=== PATIENT | male | born 1985 | race African-American/Black ===

== ENCOUNTER 2017-05-24 10:54 | Emergency (ER) | payer SELFPAY ==
[~2017-05-24] VITALS: Ht 160 cm; Wt 72.2 kg
[~2017-05-24 10:54] MED LIST: FLEXERIL10 MG; MOTRIN800 MG; NAPROSYN500 MG PO; NOHOMEMEDS; NORCO 5/3251 TABLET PO; OCUFLOX 0.100 DROP/5 LEFT EYE
[2017-05-24 12:48] VITALS: BP 140/50
== END 2017-05-24 12:49 | disposition home or self-care (01) ==
LOC: EME 10:54
DX: S63.601A Unspecified sprain of right thumb, initial encounter (principal); W17.81XA Fall down embankment (hill), initial encounter; Y93.01 Activity, walking, marching and hiking
CPT/HCPCS: 73130; 99281; 99283

== ENCOUNTER 2018-02-10 09:35 | Emergency (ER) | payer SELFPAY ==
[~2018-02-10] VITALS: Ht 160 cm; Wt 76.2 kg
[2018-02-10] MEDS ORDERED: KEFLEX500 MG PO (11:55)
[2018-02-10] MEDS ORDERED: NAPROSYN500 MG PO (11:55)
[2018-02-10 12:39] VITALS: BP 147/91
== END 2018-02-10 12:41 | disposition home or self-care (01) ==
LOC: EME 09:35
DX: S67.191A Crushing injury of left index finger, initial encounter (principal); S62.661A Nondisplaced fracture of distal phalanx of left index finger, initial encounter for closed fracture; S61.211A Laceration without foreign body of left index finger without damage to nail, initial encounter; W23.0XXA Caught, crushed, jammed, or pinched between moving objects, initial encounter; Z23 Encounter for immunization
CPT/HCPCS: 73140; 99281; 99283

== ENCOUNTER 2018-04-19 22:38 | Emergency (ER) | payer SELFPAY ==
[~2018-04-19] VITALS: Ht 160 cm; Wt 73.3 kg
[~2018-04-19 22:38] MED LIST changes: +KEFLEX500 MG PO
[2018-04-20] MEDS ORDERED: KEFLEX500 MG PO (00:29)
[2018-04-20 00:44] VITALS: BP 143/78
== END 2018-04-20 00:41 | disposition home or self-care (01) ==
LOC: EME 22:38
DX: L60.0 Ingrowing nail (principal)
CPT/HCPCS: 99281; 99283

== ENCOUNTER 2018-06-13 04:02 | Emergency (ER) | payer BC ==
[~2018-06-13] VITALS: Ht 157.5 cm; Wt 71.4 kg
[2018-06-13 04:42] LABS: HEMATOCRIT 42.9 % (38.0-50.0); HEMOGLOBIN 14.5 G/DL (12.5-16.6); MCH 28.2 PG (29.0-34.0); MCHC 33.8 G/DL (30.0-36.0); MCV 83.3 FL (86-99); PLATELET COUNT 217 K/uL (156-360); RBC DIS.WIDTH-CV 12.7 % (11.8-14.6); RBC DIS.WIDTH-SD 38.4 % (39-53); RED BLOOD COUNT 5.15 M/uL (4.00-5.50); WHITE BLOOD COUNT 6.8 K/uL (4.1-10.2)
[2018-06-13 04:52] LABS: CHLORIDE 106 mEq/L (99-109); POTASSIUM 4.2 mEq/L (3.7-5.4); SODIUM 142 mEq/L (136-147)
[2018-06-13 04:54] LABS: GLUCOSE 90 mg/dL (70-99)
[2018-06-13 04:58] LABS: GFR ESTIMATE (CALCULATED) > 59 mL/min/ (58.99-99999)
[2018-06-13 04:59] LABS: UREA NITROGEN (BUN) 11 mg/dL (9-23)
[2018-06-13 06:03] VITALS: BP 129/70
[2018-06-13] MEDS ORDERED: KEPPRA500 MG PO (11:27)
== END 2018-06-13 06:05 | disposition home or self-care (01) ==
LOC: EME → EDBD 04:02 → EME 06:05
PROVIDERS: Emergency Medicine
DX: R56.9 Unspecified convulsions (principal)
CPT/HCPCS: 70450; 80048; 85027

== ENCOUNTER 2018-06-13 09:40 | Emergency (ER) | payer BC ==
[~2018-06-13] VITALS: Ht 157.5 cm; Wt 69.9 kg
[2018-06-13 11:09] LABS: APPEARANCE CLEAR ((CLEAR)); BILIRUBIN NEGATIVE; BLOOD NEGATIVE; COLOR YELLOW ((YELLOW)); GLUCOSE (STRIP) NEGATIVE; KETONES NEGATIVE; LEUKOCYTES NEGATIVE; NITRITE NEGATIVE; PROTEIN (STRIP) 30; UROBILINOGEN 0.2 MG/DL (0.2-1.0)
[2018-06-13 11:17] LABS: THC CANNABINOIDS PRESUMPTIVE POSITIVE (50 ng/mL)
[2018-06-13 11:18] LABS: AMPHETAMINE NEGATIVE (500 ng/mL); BARBITURATES NEGATIVE (200 ng/mL); BENZODIAZEPINES NEGATIVE (150 ng/mL); BUPRENORPHINE NEGATIVE (10 ng/mL); COCAINE NEGATIVE (150 ng/mL); METHADONE NEGATIVE (200 ng/mL); METHAMPHETAMINE NEGATIVE (500 ng/mL); OPIATES (MORPHINE) NEGATIVE (100 ng/mL); OXYCODONE NEGATIVE (100 ng/mL); PHENCYCLIDINE NEGATIVE (25 ng/mL); PROPOXYPHENE NEGATIVE (300 ng/mL); TRICYCLIC ANTIDEPRESSANTS NEGATIVE (300 ng/mL)
[2018-06-13] MEDS ORDERED: KEPPRA500 MG PO (11:27)
[2018-06-13 12:00] VITALS: BP 110/63
== END 2018-06-13 12:01 | disposition home or self-care (01) ==
LOC: EME 09:40
PROVIDERS: Nurse Practitioner Family
DX: R56.9 Unspecified convulsions (principal)
CPT/HCPCS: 81003; 84999; 99281; 99284; J1953; J7030; J7050